=== PATIENT | female | born 1940 | race Caucasian/White ===

== ENCOUNTER 2016-12-09 13:38 | Emergency (ER) | payer OTHER ==
--- NOTE | 2016-12-09 13:48 | PDOC ---
History of Present Illness - General Chief Complaint: Pain Stated Complaint: LEFT LEG PAIN Time Seen by Provider: 12/09/16 13:40 History Source: Patient Exam Limitations: No Limitations - History of Present Illness Initial Comments: 12/09/16 13:45 76 y/o female with LLE pain for several days. No swelling or redness. Denies chest pain or SOB. Worse more at night. Active and walks a lot. Sent over by [facility] for further evaluation. Had blood work and X-ray done already. No fever or chills. No fall or trauma. Took an Oxycodone last night to sleep. Severity: mild Associated Symptoms: denies: chest pain, cough, shortness of breath Past History - Past Medical History Allergies/Adverse Reactions: Allergies Allergy/AdvReac Type Severity Reaction Status Date / Time No Known Allergies Allergy Verified 12/09/16 13:40 Home Medications: Ambulatory Orders Anastrozole [Arimidex -] 1 mg PO DAILY 12/09/16 Calcium Carbonate [Calcium] 240 mg PO DAILY 12/09/16 Hydrochlorothiazide [Hctz -] 12.5 mg PO DAILY 12/09/16 Multivitamins [Tab-A-Vit -] 1 tab PO DAILY 12/09/16 Potassium Chloride [K-Dur -] 20 meq PO DAILY 12/09/16 Review of Systems - Review of Systems Able to Perform ROS?: Yes Is the patient limited Indonesian proficient: No Constitutional: No: Chills, Fever Respiratory: No: Cough, Shortness of Breath Cardiac (ROS): No: Chest Pain ABD/GI: No: Nausea Integumentary: No: Bruising, Rash Neurological: No: Numbness, Paresthesia All Other Systems: Reviewed and Negative *Physical Exam - Physical Exam General Appearance: Yes: Nourished, Appropriately Dressed. No: Apparent Distress HEENT: positive: EOMI, BALTAZAR, Normal ENT Inspection, Normal Voice Neck: positive: Trachea midline, Normal Thyroid, Supple. negative: Tender, Rigid Respiratory/Chest: positive: Lungs Clear, Normal Breath Sounds. negative: Chest Tender, Respiratory Distress Cardiovascular: positive: Regular Rhythm, Regular Rate, S1, S2. negative: Edema , JVD, Murmur Vascular Pulses: Femoral (R): 4+, Femoral (L): 4+, Carotid (R): 4+, Carotid (L) : 4+, Dorsalis-Pedis (R): 4+, Doralis-Pedis (L): 4+ Gastrointestinal/Abdominal: positive: Normal Bowel Sounds, Flat, Soft. negative : Organomegaly, Pulsatile Mass Lymphatic: negative: Adenopathy, Tenderness, Other Musculoskeletal: positive: Normal Inspection, Other (swelling to left knee, old scar, no erythema or warmth, no sign of a septic joint noted). negative: CVA Tenderness Extremity: positive: Normal Capillary Refill, Normal Inspection, Normal Range of Motion. negative: Tender, Coldness, Pedal Edema, Swelling, Calf Tenderness ( no swelling, or calf tenderness noted to left leg, full ROM, old surgical scar noted, pulses 2+/4 b/l in LE) Integumentary: positive: Normal Color, Dry, Warm Neurologic: positive: deployment technician II-XII NML intact, Fully Oriented, Alert, Normal Mood/ Affect (strength 5+/5 b/l in LE, no focal deficits noted), Normal Response, Motor Strength 5/5 ED Treatment Course - ADDITIONAL ORDERS Additional order review: 12/09/16 15:07 US left leg neg for DVT Spoke with pt follow up with Orthopedics Friday May be spinal stenosis, has a hx of this If worsen return to ER Ibuprofen, rest, and ice 12/09/16 15:08 Pt is ambulating in ER without difficulty No sign of septic joint noted - RADIOLOGY Radiology Studies Ordered: Category Date Time Status DUPLEX VASCUL US-1 LEG [US] Stat Ultrasound 12/09/16 13:44 Ordered *DC/Admit/Observation/Transfer Diagnosis at time of Disposition: Pain of left lower extremity - Discharge Dispostion Disposition: HOME Condition at time of disposition: Stable Admit: No - Patient Instructions Printed Discharge Instructions: DI for Leg Pain Additional Instructions: Ice, Motrin, rest, elevate Followup with Orthopedics on Friday If worsen return to ER
[2016-12-09 13:50] VITALS: TEMP 99.2; BMI 21.1
[2016-12-09 16:11] VITALS: BP 148/71; PULSE 79
== END 2016-12-09 15:15 | disposition home or self-care (01) ==
LOC: FER 13:38
DX: M79.662 Pain in left lower leg (principal)
CPT/HCPCS: 93971-TC; 99283-25